=== PATIENT | male | born 1955 | race Caucasian/White ===

== ENCOUNTER 2025-02-11 15:16 | Emergency (ER) | payer MEDICARE, OTHER ==
[~2025-02-11 15:16] MED LIST: Iopamidol 300 61% 100 ML VIAL FS ONE
[2025-02-11 16:04] LABS: #Basophils 0.07 10x3/uL (0.0-0.2); #Eosinophils 0.39 10x3/uL (0.0-0.5); #Monocytes 0.80 10x3/uL (0.0-1.1); #Neutrophils 4.96 10x3/uL (1.5-8.4); %Basophils 0.9 % (0.0-2.0); %Eosinophils 4.9 % (0.0-6.0); %Lymphocytes 20.6 % (18.0-47.0); %Monocytes 10.1 % (0.0-10.0); %Neutrophils 62.7 % (40.0-75.0); Hematocrit 43.6 % (38.8-50.0); Hemoglobin 14.3 g/dL (13.5-17.5); Mean Corpuscular Hemoglobin 28.4 pg (27.0-33.0); Mean Corpuscular Volume 86.7 fL (81.2-95.1); Platelet Count 285 10x3/uL (150-450); Red Blood Cell (RBC) Count 5.03 10x6/uL (4.32-5.72); White Blood Cell (WBC) Count 7.91 10x3/uL (3.5-10.5)
[2025-02-11 16:55] LABS: INR-International Normal Ratio 1.1; PTT 25.1 sec (22.0-33.0); Prothrombin Time 11.7 sec (9.5-12.1)
[2025-02-11 17:11] LABS: ALT (SGPT) 23 U/L (Less than 45); AST (SGOT) 32 U/L (11-34); Albumin 3.6 g/dL (3.1-4.5); Alkaline Phosphatase 68 U/L (40-110); Anion Gap 12 mmol/L (10-20); BUN (Urea Nitrogen) 16 mg/dL (8.4-25.7); Bilirubin, Total 0.4 mg/dL (0.3-1.2); Calc. Creatinine Clearance 0 mL/min (70-130); Calcium 8.8 mg/dL (7.8-10.44); Carbon Dioxide 28 mmol/L (23-31); Chloride 102 mmol/L (98-107); Globulin 3.9 g/dL (2.4-3.5); Glucose 150 mg/dL (80-115); Potassium 3.8 mmol/L (3.5-5.1); Sodium 138 mmol/L (136-145)
[2025-02-11 17:13] LABS: Troponin I 0.011 ng/mL (< 0.028)
== END 2025-02-11 19:17 | disposition home or self-care (01) ==
LOC: CSHERS 15:16
DX: S20.211A Contusion of right front wall of thorax, initial encounter (principal); S80.11XA Contusion of right lower leg, initial encounter; V49.40XA Driver injured in collision with unspecified motor vehicles in traffic accident, initial encounter
CPT/HCPCS: 71260; 73590; 80053; 84484; 85025; 85610; 85730; 93005; 94799; J2270; 36415; 96374; Q9967